=== PATIENT | male | born 1945 | race Caucasian/White ===

== ENCOUNTER 2021-08-30 17:06 | Inpatient (IN) | payer OTHER, SELFPAY ==
[2021-08-30] VITALS (33 sets, daily range): BP systolic 122–180; BP diastolic 60–145; PULSE 70–129; RESP 15–51; TEMP 36.7; O2SAT 92–98
--- NOTE | 2021-08-30 17:22 | DI.RAD.S_ITS ---
PROCEDURE: XR CHEST 1V INDICATIONS: shortness of breath TECHNIQUE: One view of the chest was acquired. COMPARISON: None. FINDINGS: Surgical changes and devices: None. Lungs and pleura: Small bilateral pleural effusions are seen. Streaky opacities are seen at the lung bases, right worse than left. No pneumothorax is seen. Mild generalized interstitial prominence can be seen. Mediastinum: Mediastinal contours appear normal. Heart size is mildly enlarged. Bones and chest wall: No suspicious bony lesions. Age-appropriate bony degenerative changes are seen. Overlying soft tissues appear unremarkable. IMPRESSION: Mild cardiomegaly with interstitial prominence and small bilateral pleural effusions. Please correlate with patient presentation, physical examination findings, and laboratory values for congestive heart failure. At the lung bases, poorly defined opacity can be seen. This is attributed to atelectasis, although differential diagnosis includes mild infiltrate, particularly on the right. Dictated by: Isiah Short M.D. on 08/30/2021 at 17:17 Approved by: Isiah Short M.D. on 08/30/2021 at 17:18
[2021-08-30 17:42] LABS: COVID19 -Nasal RAPID Negative (Negative)
[2021-08-30 18:01] LABS: Add Manual Diff / Slide Review NO; Basophils Absolute Auto 100 /uL (0-100); Basophils Percent Auto 0.9 % (0-2); Eosinophils Absolute Auto 100 /uL (0-450); Eosinophils Percent Auto 1.4 % (2-4); Hematocrit 49.6 % (41-53); Lymphocytes Absolute Auto 900 /uL (1100-4500); Mean Corpuscular HGB Conc 34.3 % (30-36); Mean Corpuscular Hemoglobin 32.4 PG (26-34); Mean Corpuscular Volume 94.4 fL (80-100); Monocytes Absolute Auto 600 /uL (0-900); Monocytes Percent Auto 7.2 % (3-14); Neutrophils Absolute Auto 6400 /uL (1500-7000); Neutrophils Percent Auto 79.5 % (50-75); Platelet Count 174 X10^3/uL (150-400); Red Blood Cell Count 5.25 X10^6/uL (4.5-5.9); Red Cell Distribution Width 15.3 % (11.6-14.8); White Blood Cell Count 8.1 X10^3/uL (4.5-11.0)
[2021-08-30] MEDS: dilTIAZem 5 MG/ML SDV 20 MG IV (18:01)
[2021-08-30 18:02] LABS: D Dimer 506 ng/mL (<230)
[2021-08-30 18:07] LABS: Alanine Aminotransferase 38 IU/L (<50); Albumin 4.8 g/dL (3.5-5.0); Albumin Globulin Ratio 1.2 (1.0-2.8); Alkaline Phosphatase 65 U/L (38-126); Aspartate Aminotransferase 41 IU/L (17-59); BUN Creatinine Ratio 28.6 (6-22); Bilirubin Total 1.5 mg/dL (0.2-1.3); Blood Urea Nitrogen 24 mg/dL (9-20); Calcium 9.2 mg/dL (8.4-10.2); Carbon Dioxide 31 mmol/L (22-32); Chloride 107 mmol/L (98-107); Creatine Kinase 51 U/L (55-170); Estimated Glomerular Filt Rate > 60 mL/min (>60); Globulin 3.9 g/dL (1.7-4.1); Glucose 137 mg/dL (80-110); HEMOLYSIS < 15 (0-50); Lactate (Lactic Acid) 2.1 mmol/L (0.7-2.1); Potassium 3.6 mmol/L (3.4-5.1); Sodium 150 mmol/L (137-145); Total Protein 8.7 g/dL (6.3-8.2)
--- NOTE | 2021-08-30 18:09 | ED_ITS ---
HPI - SOB/Dyspnea General Chief Complaint: Shortness of Breath/Dyspnea Stated Complaint: SOB Time Seen by Provider: 08/30/21 17:40 Source: patient Mode of arrival: Wheelchair History of Present Illness HPI Narrative: 76-year-old male smoker without known or chronic medical problems (he admittedly has not been to a doctor since 2002) presents with his daughter and a chief complaint of about 10 days of increasing shortness of breath and fatigue. He states that he had been in what he refers to as his normal state of health but since then minimal exertion makes him profoundly short of breath. He denies any chest pain or palpitations. He has had no fever or chills. He denies any nausea, vomiting or diarrhea. He does admit to some swelling in his lower extremities. He denies any history of the same. He presents today because his daughter flew in from out of state and found him to be ill and encouraged him to come be seen Related Data Home Medications Medication Instructions Recorded Confirmed No Known Home Medications 08/31/21 08/31/21 Allergies Allergy/AdvReac Type Severity Reaction Status Date / Time No Known Drug Allergies Allergy Verified 08/30/21 17:13 Review of Systems Review of Systems Narrative: GENERAL: Denies chills, fatigue, malaise, fever, sweats. HEENT: Denies sinus pain, ear pain, sore throat, difficulty swallowing, dizziness. RESPIRATORY: Denies dyspnea, cough, wheezing, hemoptysis, sputum. CARDIOVASCULAR: See HPI GASTROINTESTINAL: Denies nausea, vomiting, abdominal pain, diarrhea, constipation, melena. : Denies dysuria, frequency, incontinence, hematuria, urinary retention. MUSCULOSKELETAL: See HPI SKIN: Denies rash, skin lesions, or other NEUROLOGIC: Denies weakness, headache, numbness, change in speech, confusion, seizures, incoordination. PSYCHIATRIC: No concerning psychosocial issues. 12 point review of systems is negative except for those stated above Patient History Social History household members: none Smoking Status: Current every day smoker alcohol intake: current Smoking Status: Current every day smoker Substance Use Type: does not use Exam Narrative Exam Narrative: GENERAL: [76] year old patient appears stated age. Well-developed patient, in mild distress. Increased work of breathing, hypoxemia, rapid and irregular heart rate HEAD: Atraumatic. Normocephalic. EYES: Pupils equal round and reactive. Extraocular motions intact. No scleral icterus. No injection or drainage. ENT: Nose without bleeding, purulent drainage. Throat without erythema, tonsillar hypertrophy or exudate. Airway patent. NECK: Trachea midline. Non tender CARDIOVASCULAR: Tachycardic and rhythm without murmurs, gallops, or rubs. RESPIRATORY: Increased work of breathing, hypoxemia, crackles in both bases, prolonged expiratory phase, expiratory wheeze GASTROINTESTINAL: Abdomen soft, non-tender, nondistended. EXTREMITIES: 2+ pitting edema bilateral lower extremities BACK: Nontender without deformity or crepitance. No flank tenderness. NEURO: AOx3. SKIN: No rash or erythema of visible areas Initial Vital Signs Initial Vital Signs: Vital Signs Temperature 98.1 F 08/30/21 17:13 Pulse Rate 70 08/30/21 17:13 Respiratory Rate 22 08/30/21 17:13 Blood Pressure 122/87 08/30/21 17:13 Pulse Oximetry 92 08/30/21 17:13 Course Orders Ordered: Acetaminophen (Acetaminophen 325 Mg Tablet) 650 mg PO Q6HR PRN PRN Reason: pain Apixaban (Apixaban 5 Mg Tablet) 5 mg PO BID ELLIOTT Diltiazem HCl (Diltiazem 30 Mg Tablet) 30 mg PO Q6HR ELLIOTT Furosemide (Furosemide 40 Mg/4 Ml Vial) 40 mg IV Q12HR ELLIOTT Lorazepam (Lorazepam 2 Mg/Ml Inj) 0.5 mg IV Q6HR PRN PRN Reason: Anxiety Naloxone HCl (Naloxone 0.4 Mg/Ml Vial) 0.2 mg IV Q2MIN PRN PRN Reason: Opiate Reversal Ondansetron HCl (Ondansetron 4 Mg/2 Ml Inj) 4 mg IV Q8HR PRN PRN Reason: Nausea And Vomiting Sodium Chloride (Sodium Chloride 0.9% Flush) 10 ml IV PRN PRN PRN Reason: Flush Sodium Chloride (Sodium Chloride 0.9% Flush) 10 ml IV BID ELLIOTT Discontinued Medications Diltiazem HCl (Diltiazem 5 Mg/Ml Sdv) 20 mg IV NOW ONE Stop: 08/30/21 17:47 Last Admin: 08/30/21 18:01 Dose: 20 mg Documented by: ATAYLOR Diltiazem HCl (Diltiazem Sr 60 Mg) 60 mg PO NOW ONE Stop: 08/30/21 23:42 Last Admin: 08/31/21 01:04 Dose: Not Given Documented by: ZE Diltiazem HCl (Diltiazem 30 Mg Tablet) 30 mg PO NOW ONE Stop: 08/31/21 00:58 Last Admin: 08/31/21 01:09 Dose: 30 mg Documented by: ZE Enoxaparin Sodium (Enoxaparin 40 Mg/0.4 Ml Syringe) 40 mg SUBCUT NOW ONE Stop: 08/30/21 18:21 Last Admin: 08/30/21 19:12 Dose: 40 mg Documented by: ATAANGEL Furosemide (Furosemide 40 Mg/4 Ml Vial) 40 mg IV NOW ONE Stop: 08/30/21 18:21 Last Admin: 08/30/21 19:15 Dose: 40 mg Documented by: MALCOLM Diltiazem HCl 125 mg/ Dextrose 125 mls @ 5 mls/hr IV TITRATE ELLIOTT; Protocol Last Titration: 08/31/21 01:06 Dose: 0 mg/hr, 0 mls/hr Documented by: Titration: 08/30/21 22:10 Dose: 0 mg/hr, 0 mls/hr Documented by: Titration: 08/30/21 21:45 Dose: 5 mg/hr, 5 mls/hr Documented by: Titration: 08/30/21 19:20 Dose: 10 mg/hr, 10 mls/hr Documented by: Admin: 08/30/21 18:12 Dose: 5 mg/hr, 5 mls/hr Documented by: ATAYLOR Vital Signs Vital signs: Vital Signs - 8 hr 08/30/21 20:20 08/30/21 20:31 08/30/21 20:40 Pulse Rate 94 H 84 Respiratory Rate 22 15 Blood Pressure 153/81 H Pulse Oximetry 96 98 08/30/21 21:00 08/30/21 21:20 08/30/21 21:21 Pulse Rate 89 86 87 Respiratory Rate 19 18 20 Blood Pressure 135/75 129/78 Pulse Oximetry 97 97 97 08/30/21 21:40 08/30/21 22:00 08/30/21 22:20 Pulse Rate 82 84 82 Respiratory Rate 20 17 20 Blood Pressure 139/72 132/84 Pulse Oximetry 95 97 97 08/30/21 22:21 08/30/21 22:40 08/30/21 23:00 Pulse Rate 81 83 83 Respiratory Rate 18 16 15 Blood Pressure 129/66 138/70 164/74 H Pulse Oximetry 98 98 98 08/30/21 23:20 08/30/21 23:21 Pulse Rate 85 89 Respiratory Rate 16 21 Blood Pressure 133/70 Pulse Oximetry 98 96 MDM - SOB/Dyspnea Lab Data Result diagrams: 08/30/21 17:40 08/30/21 17:40 Labs: Lab Results 08/30/21 08/30/21 08/30/21 Range/Units 17:20 17:40 17:40 WBC 8.1 (4.5-11.0) X10^3/uL RBC 5.25 (4.5-5.9) X10^6/uL Hgb 17.0 (13.5-17.5) g/dL Hct 49.6 (41-53) % MCV 94.4 (80-100) fL MCH 32.4 (26-34) PG MCHC 34.3 (30-36) % RDW 15.3 H (11.6-14.8) % Plt Count 174 (150-400) X10^3/uL Neut % (Auto) 79.5 H (50-75) % Lymph % (Auto) 11.0 L (25-40) % [place] % (Auto) 7.2 (3-14) % Eos % (Auto) 1.4 L (2-4) % Baso % (Auto) 0.9 (0-2) % Neut # (Auto) 6400 (3046-8291) /uL Lymph # (Auto) 900 L (0212-4680) /uL [place] # (Auto) 600 (0-900) /uL Eos # (Auto) 100 (0-450) /uL Baso # (Auto) 100 (0-100) /uL D-Dimer (<230) ng/mL Sodium 150 H (137-145) mmol/L Potassium 3.6 (3.4-5.1) mmol/L Chloride 107 (98-107) mmol/L Carbon Dioxide 31 (22-32) mmol/L BUN 24 H (9-20) mg/dL Creatinine 0.84 (0.66-1.25) mg/dL Estimated GFR > 60 (>60) mL/min BUN/Creatinine Ratio 28.6 H (6-22) Glucose 137 H (80-110) mg/dL Lactate (0.7-2.1) mmol/L Calcium 9.2 (8.4-10.2) mg/dL Total Bilirubin 1.5 H (0.2-1.3) mg/dL AST 41 (17-59) IU/L ALT 38 (<50) IU/L Alkaline Phosphatase 65 (38-126) U/L Total Creatine Kinase (55-170) U/L CK-MB (CK-2) CK-MB (CK-2) Rel Index Troponin I (0.01-0.034) ng/mL NT-Pro-B Natriuret Pep (<450) pg/mL Total Protein 8.7 H (6.3-8.2) g/dL Albumin 4.8 (3.5-5.0) g/dL Globulin 3.9 (1.7-4.1) g/dL Albumin/Globulin Ratio 1.2 (1.0-2.8) SARS-CoV-2 (PCR) Negative (Negative) 08/30/21 08/30/21 08/30/21 Range/Units 17:40 17:40 17:40 WBC (4.5-11.0) X10^3/uL RBC (4.5-5.9) X10^6/uL Hgb (13.5-17.5) g/dL Hct (41-53) % MCV (80-100) fL MCH (26-34) PG MCHC (30-36) % RDW (11.6-14.8) % Plt Count (150-400) X10^3/uL Neut % (Auto) (50-75) % Lymph % (Auto) (25-40) % [place] % (Auto) (3-14) % Eos % (Auto) (2-4) % Baso % (Auto) (0-2) % Neut # (Auto) (2852-9835) /uL Lymph # (Auto) (4824-1597) /uL [place] # (Auto) (0-900) /uL Eos # (Auto) (0-450) /uL Baso # (Auto) (0-100) /uL D-Dimer 506 H (<230) ng/mL Sodium (137-145) mmol/L Potassium (3.4-5.1) mmol/L Chloride (98-107) mmol/L Carbon Dioxide (22-32) mmol/L BUN (9-20) mg/dL Creatinine (0.66-1.25) mg/dL Estimated GFR (>60) mL/min BUN/Creatinine Ratio (6-22) Glucose (80-110) mg/dL Lactate 2.1 (0.7-2.1) mmol/L Calcium (8.4-10.2) mg/dL Total Bilirubin (0.2-1.3) mg/dL AST (17-59) IU/L ALT (<50) IU/L Alkaline Phosphatase (38-126) U/L Total Creatine Kinase 51 L (55-170) U/L CK-MB (CK-2) TNP CK-MB (CK-2) Rel Index TNP Troponin I 0.052 H (0.01-0.034) ng/mL NT-Pro-B Natriuret Pep 5130 H (<450) pg/mL Total Protein (6.3-8.2) g/dL Albumin (3.5-5.0) g/dL Globulin (1.7-4.1) g/dL Albumin/Globulin Ratio (1.0-2.8) SARS-CoV-2 (PCR) (Negative) 08/30/21 Range/Units 20:00 WBC (4.5-11.0) X10^3/uL RBC (4.5-5.9) X10^6/uL Hgb (13.5-17.5) g/dL Hct (41-53) % MCV (80-100) fL MCH (26-34) PG MCHC (30-36) % RDW (11.6-14.8) % Plt Count (150-400) X10^3/uL Neut % (Auto) (50-75) % Lymph % (Auto) (25-40) % [place] % (Auto) (3-14) % Eos % (Auto) (2-4) % Baso % (Auto) (0-2) % Neut # (Auto) (6683-4353) /uL Lymph # (Auto) (0431-3173) /uL [place] # (Auto) (0-900) /uL Eos # (Auto) (0-450) /uL Baso # (Auto) (0-100) /uL D-Dimer (<230) ng/mL Sodium (137-145) mmol/L Potassium (3.4-5.1) mmol/L Chloride (98-107) mmol/L Carbon Dioxide (22-32) mmol/L BUN (9-20) mg/dL Creatinine (0.66-1.25) mg/dL Estimated GFR (>60) mL/min BUN/Creatinine Ratio (6-22) Glucose (80-110) mg/dL Lactate 2.8 H (0.7-2.1) mmol/L Calcium (8.4-10.2) mg/dL Total Bilirubin (0.2-1.3) mg/dL AST (17-59) IU/L ALT (<50) IU/L Alkaline Phosphatase (38-126) U/L Total Creatine Kinase (55-170) U/L CK-MB (CK-2) CK-MB (CK-2) Rel Index Troponin I (0.01-0.034) ng/mL NT-Pro-B Natriuret Pep (<450) pg/mL Total Protein (6.3-8.2) g/dL Albumin (3.5-5.0) g/dL Globulin (1.7-4.1) g/dL Albumin/Globulin Ratio (1.0-2.8) SARS-CoV-2 (PCR) (Negative) ECG Data Interpretation: Tachycardic and irregular, atrial fibrillation with rate at 1:15 a.m., LVH, QRS 124 MDM Narrative Medical decision making narrative: Patient is initially given Cardizem push followed by Cardizem drip which has slowed his rate largely into the upper 90s and low 100s. Oxygen by nasal cannula at 2 L initiated. Patient requires hospitalization for ongoing stabilization, treatment and evaluation of his condition. Discharge Plan Departure Patient Disposition: Admitted as Observation Clinical Impression: Atrial fibrillation with rapid ventricular response Admit Date/Time: 08/30/21 23:57 Admit Provider: Evgeny Snyder
[2021-08-30] MEDS: dilTIAZem 125 MG in DEXTROSE 5 % IN WATER 100 ML IV (18:12)
[2021-08-30 18:19] LABS: NT-proBNP (BNP-Adult 18+) 5130 pg/mL (<450); Troponin I 0.052 ng/mL (0.01-0.034)
--- NOTE | 2021-08-30 18:26 | DI.CT.S_ITS ---
PROCEDURE: CT ANGIO CHEST PE PROTOCOL INDICATIONS: new onset AFib, Acute CHF, hypoxemia, smoker, elevated Dimer TECHNIQUE: After the administration of intravenous contrast, 2 mm thick sections acquired from the pulmonary apices to the posterior costophrenic angles. 3-dimensional maximum intensity projection (MIP) coronal and sagittal reformats were then acquired through the thorax. For radiation dose reduction, the following was used: automated exposure control, adjustment of mA and/or kV according to patient size. COMPARISON: None. FINDINGS: Image quality: Excellent. Pulmonary arteries: Pulmonary arteries are normal in size, and demonstrate no intraluminal filling defects to suggest central pulmonary embolism. Lungs and pleura: Thickening of the interlobular septa with small left and small to moderate right pleural effusions, compatible with pulmonary edema. No pneumothorax. Central and peripheral airways are patent. Mediastinum: Heart size is normal, without pericardial effusion. Mediastinal lymph nodes, which may be reactive. Thoracic aorta is normal in caliber and enhancement. Esophagus is normal in caliber, without hiatal hernia. Bones and chest wall: Multifocal degenerative change. Ribs and thoracic spine appear intact throughout. Thyroid gland appears homogeneous. No axillary or supraclavicular adenopathy. Abdomen: 2 cm hypoattenuating lesion in the right hepatic lobe, which may reflect a cyst. Nodular contour of the liver, which may reflect cirrhosis. IMPRESSION: 1. No CT evidence of pulmonary embolism. 2. Interlobular septal thickening with bilateral pleural effusions as detailed above, suggesting pulmonary edema. 3. Nodular contour of the liver, suggesting cirrhosis. Dictated by: Pawan Chester M.D. on 08/30/2021 at 19:32 Approved by: Pawan Chester M.D. on 08/30/2021 at 19:37
[2021-08-30] MEDS: ENOXAPARIN 40 MG/0.4 ML SYRINGE SUBCUT (19:12)
[2021-08-30] MEDS: FUROSEMIDE 40 MG/4 ML VIAL IV (19:15)
[2021-08-30 19:46] LABS: Reflexed Lactate in 2 Hours Y
[2021-08-30 20:17] LABS: Lactate 2HR (Lactic Acid Rflx) 2.8 mmol/L (0.7-2.1)
[2021-08-31] VITALS (17 sets, daily range): BP systolic 114–140; BP diastolic 61–76; PULSE 64–99; RESP 17–20; TEMP 36.5–36.9; O2SAT 92–98; BMI 27.8
--- NOTE | 2021-08-31 00:45 | DI.ECHO.S_ITS ---
[facility] +---------+ [facility] +---------+ : : [address] : : : [place], [place] : : : : [id number] : : : : Phone: [phone]+ Echocardiogram Report + + :Name: MARY BRADY Study Date: 08/31/2021 Height: 70 in : :[facility] ReadingLocation: Weight: 194 lb : : Gender: Male BSA: 2.1 m2 : :: 1945 Age: 76 yrs BP: 114/68 mmHg: :Reason For Study: Congestive Heart Failure : :Ordering Physician: Rajeev : :Hospitalist Performed By: Nena Cordova : :Referring: TATYANA SARKAR : + + Interpretation Summary The patient was in atrial fibrillation with heart rates between 77-121 bpm during the exam. The left ventricle is mildly dilated. The ejection fraction is estimated to be 20-25%. There is severe global hypokinesis of the left ventricle. The right ventricle is normal size. Right ventricular systolic function is mildly reduced. There is moderate mitral regurgitation. The right ventricular systolic pressure is estimated to be at least 39 mmHg based on an estimated right atrial pressure of 15 mm Hg. There is a moderate right-sided pleural effusion. Procedure: A two-dimensional transthoracic echocardiogram with color flow and Doppler was performed. The study quality was technically adequate. There is no prior echocardiogram noted for this patient. The patient was in atrial fibrillation with heart rates between 77-121 bpm during the exam. Left Ventricle: The estimated left ventricular end diastolic volume is 162 ml. The left ventricle is mildly dilated. There is normal left ventricular wall thickness. There is no thrombus. The ejection fraction is estimated to be 20-25%. There is severe global hypokinesis of the left ventricle. Diastolic function could not be accurately assessed due to atrial fibrillation. Right Ventricle: The right ventricle is normal size. Right ventricular systolic function is mildly reduced. Atria: The left atrium is severely dilated. The right atrium is mildly dilated. The interatrial septum grossly appears intact with no obvious evidence for an atrial septal defect. Mitral Valve: The mitral valve leaflets appear mildly thickened, but open well. There is mild mitral annular calcification. There is moderate mitral regurgitation. Aortic Valve: The aortic valve is trileaflet. The aortic valve opens well. The aortic valve is mildly calcified. There is no aortic valve stenosis. No aortic regurgitation is present. Tricuspid Valve: The tricuspid valve leaflets are thin and pliable. There is trace tricuspid regurgitation. The right ventricular systolic pressure is estimated to be at least 39 mmHg based on an estimated right atrial pressure of 15 mm Hg. Pulmonic Valve: The pulmonic valve is not well seen, but is grossly normal. Great Vessels: The aortic root is normal size. The ascending aorta is normal in size. The IVC is dilated (diameter is greater than 2.1 cm) and it collapses less than 50% with a sniff. This suggests a high right atrial pressure of 15 mm Hg. Pericardium/ Pleura There is a trivial pericardial effusion noted. There are no echocardiographic indications of cardiac tamponade. There is a moderate right-sided pleural effusion. MMode/2D Measurements & Calculations LVIDd: 5.6 cm LVOT diam: 2.4 cm LVIDs: 4.7 cm Ao root diam: 3.6 cm FS: 16.1 % asc Aorta Diam: 3.4 cm EPSS: 1.1 cm IVSd: 0.93 cm LVPWd: 1.1 cm LV shankar. diameter/BSA (cm/m^2): 2.7 LV sys. diameter/BSA (cm/m^2): 2.3 LA A2 area: 28.4 cm2 RA long axis: 5.8 cm LA A4 area: 28.9 cm2 RA area: 22.8 cm2 LA length (vol): 6.0 cm RA vol: 76.4 ml LA vol: 115.6 ml RA : 37.1 ml/m2 LA vol index: 56.1 ml/m2 IVC diam: 2.2 cm RVD1 (basal): 3.8 cm TAPSE: 1.7 cm Doppler Measurements & Calculations Ao V2 max: 151.7 cm/sec LVOT Max Ko: 59.0 cm/sec Ao V2 mean: 107.9 cm/sec LV V1 max P.4 mmHg Ao max P.3 mmHg LV V1 VTI: 7.9 cm Ao mean P.2 mmHg MICHELLE(I,D): 1.6 cm2 Ao V2 VTI: 21.7 cm MICHELLE(V,D): 1.7 cm2 sev ratio: 0.37 MICHELLE indexed to BSA (cm^2/m^2): 0.80 Med Peak E' Ko: 3.9 cm/sec TR max ko: 244.7 cm/sec Lat Peak E' Ko: 6.6 cm/sec TR max P.0 mmHg MVA(VTI): 1.7 cm2 PA V2 max: 77.2 cm/sec MR ERO: 0.23 cm2 PA V2 mean: 47.7 cm/sec PA mean P.0 mmHg PA pr(Accel): 39.2 mmHg MV V2 mean: 29.2 cm/sec MR PISA: 3.0 cm2 MV mean P.57 mmHg MR flow rate: 110.1 cm3/sec MV V2 VTI: 20.4 cm MR PISA radius: 0.69 cm SV(LVOT): 35.6 ml Reading Physician:03:50 PM
[2021-08-31 01:06] LABS: Troponin I 0.055 ng/mL (0.01-0.034)
[2021-08-31] MEDS: dilTIAZem 30 MG TABLET PO ×4 (01:09→18:29)
[2021-08-31 05:41] LABS: Add Manual Diff / Slide Review NO; Basophils Absolute Auto 100 /uL (0-100); Eosinophils Absolute Auto 100 /uL (0-450); Eosinophils Percent Auto 1.7 % (2-4); Hematocrit 44.1 % (41-53); Hemoglobin 14.7 g/dL (13.5-17.5); Lymphocytes Absolute Auto 900 /uL (1100-4500); Lymphocytes Percent Auto 12.5 % (25-40); Mean Corpuscular HGB Conc 33.4 % (30-36); Mean Corpuscular Hemoglobin 31.6 PG (26-34); Mean Corpuscular Volume 94.6 fL (80-100); Monocytes Absolute Auto 700 /uL (0-900); Monocytes Percent Auto 9.3 % (3-14); Neutrophils Absolute Auto 5300 /uL (1500-7000); Neutrophils Percent Auto 75.5 % (50-75); Platelet Count 164 X10^3/uL (150-400); Red Blood Cell Count 4.66 X10^6/uL (4.5-5.9); Red Cell Distribution Width 15.1 % (11.6-14.8)
--- NOTE | 2021-08-31 05:44 | PM.HP.1 ---
History of Present Illness History of Present Illness Date Patient Seen: 08/31/21 Time Patient Seen: 00:30 Chief complaint: SOB Narrative: Mr. Julio is a 76M active smoker, with no PMH, seen no physician for years who presents with shortness of breath. He began having shortness of breath approximately two weeks ago. He has a mild, nonproductive cough. He has no fevers/chills. He notices ankle swelling. He has dyspnea on exertion. He has no chest pain, palpitations. No orthopnea. In the ED workup was done, and vitals were notable for tachypnea. O2 sat in the low 90s, he was placed on oxygen. He was tachycardic in afib with RVR. Labs notable for WBC 8.1, hgb 17, Na 150, creatinaine 0.84. D-dimer 506. Lactate 2.1->2.8->2.0. Trop 0.052->0.055, BNP 5130. CT showed bilateral pleural effusions and pulmonary edema. He was ordered for dilt IV, then started on drip. His heart rate improved and drip was stopped and he was transitioned to oral medications. He was ordered for IV lasix. PMH: none Meds: none Family history: Father with CAD Social history: 10-20 cigs/daily, no EtOH Patient History Family & Social History Social History: household members none Prior Living Arrangements House Safety & Behavioral: Feels Safe in Current Yes Environment Been Physically Hurt or No Threatened By a Person Suicidal Ideation Description None Suicide Plan Description No Plan Tobacco & Substance use: Tobacco type cigarettes Smoking Status Current every day smoker alcohol intake current alcohol intake frequency other Substance Use Type does not use Meds Home Medications and Allergies Home Medications Medication Instructions Recorded Confirmed Type No Known Home Medications 08/31/21 08/31/21 History Allergies Allergy/AdvReac Type Severity Reaction Status Date / Time No Known Drug Allergies Allergy Verified 08/30/21 17:13 Review of Systems Review of Systems Narrative: 14 systems reviewed and negative aside from what is noted in HPI Exam Vital Signs (past 8 hours): - 08/30/21 22:00 08/30/21 22:20 08/30/21 22:21 Temperature Pulse Rate 84 82 81 Respiratory Rate 17 20 18 Blood Pressure 132/84 129/66 Pulse Oximetry 97 97 98 08/30/21 22:40 08/30/21 23:00 08/30/21 23:20 Temperature Pulse Rate 83 83 85 Respiratory Rate 16 15 16 Blood Pressure 138/70 164/74 H Pulse Oximetry 98 98 98 08/30/21 23:21 08/31/21 00:21 08/31/21 00:45 Temperature 98.1 F Pulse Rate 89 92 H Respiratory Rate 21 17 Blood Pressure 133/70 121/69 Pulse Oximetry 96 96 98 08/31/21 01:09 08/31/21 04:45 Temperature 98.0 F Pulse Rate 92 H 89 Respiratory Rate 17 Blood Pressure 121/69 132/63 Pulse Oximetry 93 Oxygen Delivery Method Nasal Cannula Oxygen Flow Rate 1 Narrative Exam Narrative: GEN: no acute distress HEENT: moist mucous membranes, PERRL NECK: trachea midline, no JVD CV: irregular, no murmurs PULM: crackles bilaterally ABD: soft, nontender, nondistended, no organomegaly EXT: warm and well perfused, 1+ pitting edema at ankles NEURO: awake, alert, oriented, no focal deficits Objective Labs Result Diagrams: 08/31/21 05:11 08/30/21 17:40 Labs: Laboratory Results - last 24 hr 08/30/21 08/30/21 08/30/21 17:20 17:40 17:40 WBC 8.1 RBC 5.25 Hgb 17.0 Hct 49.6 MCV 94.4 MCH 32.4 MCHC 34.3 RDW 15.3 H Plt Count 174 Neut % (Auto) 79.5 H Lymph % (Auto) 11.0 L [place] % (Auto) 7.2 Eos % (Auto) 1.4 L Baso % (Auto) 0.9 Neut # (Auto) 6400 Lymph # (Auto) 900 L [place] # (Auto) 600 Eos # (Auto) 100 Baso # (Auto) 100 D-Dimer Sodium 150 H Potassium 3.6 Chloride 107 Carbon Dioxide 31 BUN 24 H Creatinine 0.84 Estimated GFR > 60 BUN/Creatinine Ratio 28.6 H Glucose 137 H Lactate Calcium 9.2 Total Bilirubin 1.5 H AST 41 ALT 38 Alkaline Phosphatase 65 Total Creatine Kinase CK-MB (CK-2) CK-MB (CK-2) Rel Index Troponin I NT-Pro-B Natriuret Pep Total Protein 8.7 H Albumin 4.8 Globulin 3.9 Albumin/Globulin Ratio 1.2 SARS-CoV-2 (PCR) Negative 08/30/21 08/30/21 08/30/21 17:40 17:40 17:40 WBC RBC Hgb Hct MCV MCH MCHC RDW Plt Count Neut % (Auto) Lymph % (Auto) [place] % (Auto) Eos % (Auto) Baso % (Auto) Neut # (Auto) Lymph # (Auto) [place] # (Auto) Eos # (Auto) Baso # (Auto) D-Dimer 506 H Sodium Potassium Chloride Carbon Dioxide BUN Creatinine Estimated GFR BUN/Creatinine Ratio Glucose Lactate 2.1 Calcium Total Bilirubin AST ALT Alkaline Phosphatase Total Creatine Kinase 51 L CK-MB (CK-2) TNP CK-MB (CK-2) Rel Index TNP Troponin I 0.052 H NT-Pro-B Natriuret Pep 5130 H Total Protein Albumin Globulin Albumin/Globulin Ratio SARS-CoV-2 (PCR) 08/30/21 08/31/21 08/31/21 20:00 00:35 00:35 WBC RBC Hgb Hct MCV MCH MCHC RDW Plt Count Neut % (Auto) Lymph % (Auto) [place] % (Auto) Eos % (Auto) Baso % (Auto) Neut # (Auto) Lymph # (Auto) [place] # (Auto) Eos # (Auto) Baso # (Auto) D-Dimer Sodium Potassium Chloride Carbon Dioxide BUN Creatinine Estimated GFR BUN/Creatinine Ratio Glucose Lactate 2.8 H 2.0 Calcium Total Bilirubin AST ALT Alkaline Phosphatase Total Creatine Kinase CK-MB (CK-2) CK-MB (CK-2) Rel Index Troponin I 0.055 H NT-Pro-B Natriuret Pep Total Protein Albumin Globulin Albumin/Globulin Ratio SARS-CoV-2 (PCR) 08/31/21 05:11 WBC 7.0 RBC 4.66 Hgb 14.7 Hct 44.1 MCV 94.6 MCH 31.6 MCHC 33.4 RDW 15.1 H Plt Count 164 Neut % (Auto) 75.5 H Lymph % (Auto) 12.5 L [place] % (Auto) 9.3 Eos % (Auto) 1.7 L Baso % (Auto) 1.0 Neut # (Auto) 5300 Lymph # (Auto) 900 L [place] # (Auto) 700 Eos # (Auto) 100 Baso # (Auto) 100 D-Dimer Sodium Potassium Chloride Carbon Dioxide BUN Creatinine Estimated GFR BUN/Creatinine Ratio Glucose Lactate Calcium Total Bilirubin AST ALT Alkaline Phosphatase Total Creatine Kinase CK-MB (CK-2) CK-MB (CK-2) Rel Index Troponin I NT-Pro-B Natriuret Pep Total Protein Albumin Globulin Albumin/Globulin Ratio SARS-CoV-2 (PCR) Assessment & Plan Assessment & Plan narrative: Mr. Julio is a 76M with known previous known PMH who presents with shortness of breath. 1. Acute congestive heart failure with acute respiratory distress -noted to have acute bilateral pleural effusions, pulmonary edema, lower extremity edema and elevated BNP -consistent with new diagnosis of CHF -has improved with IV lasix -continue IV lasix 40mg BID, goal -2L daily -ECHO ordered to eval EF -ordered low salt diet, fluid restriction 2. New onset afib with RVR -heart rate improved with dilt gtt -gtt stopped and switched to dilt 30mg q6 PO -started apixaban -ECHO as above 3. Cardiac demand ischemia -patient with no chest pain -trop slightly elevated and rising from 0.054 to 0.057 -suspect demand from afib with RVR and CHF -continue to trend trops -start statin -consider aspirin, but will hold off for now as ordered for apixaban CODE: Full Proxy: Rose Mary Julio, daughter I have used all available resources to reconcile the patient's home medications. Time Spent With Patient Critical Care time: I spent a total of [] minutes of critical care time on this patient's care today; this time is exclusive of procedural time. Quality MIPS - Admit I confirm the patient?s Advance Care Plan is present, Code status is documented, Surrogate decision maker is in patient?s record [If Yes, STOP here]: Yes
[2021-08-31 05:47] LABS: BUN Creatinine Ratio 24.4 (6-22); Blood Urea Nitrogen 21 mg/dL (9-20); Calcium 8.5 mg/dL (8.4-10.2); Carbon Dioxide 35 mmol/L (22-32); Chloride 105 mmol/L (98-107); Estimated Glomerular Filt Rate > 60 mL/min (>60); Glucose 112 mg/dL (80-110); HEMOLYSIS < 15 (0-50); Magnesium 1.9 mg/dL (1.6-2.3); Potassium 3.6 mmol/L (3.4-5.1); Sodium 146 mmol/L (137-145)
--- NOTE | 2021-08-31 06:05 | PC.ADMIT ---
1809 Patient admitted to room 221 per stretcher from ER but transferred into bed with 1 assist. Is alert and oriented. Reports he is only able to see light and colors with left eye. Breath sounds diminished with scattered crackles. Has a loose, non-productive cough which he states he has had for 5-6 years; smoker's cough. Initially on RA with sat of 98% but later this morning was complaining of feeling more SOB and sat noted to be 90-91% so started on oxygen at 1L/min per NC with sat increasing to 93%. HR irregular; telemetry reading has been afib CVR although did have a brief episode where HR noted to be in 120 range for approximately 3 seconds. Denied nausea but states he has not been able to eat well for past 10 days. BT present and abdomen is soft; non tender. Voiding per urinal; reports he had episode of incontinence in ER following Lasix administration but is normally continent. Is able to move himself in bed. Gait not assessed but patient reports he does not use an assistive device at home. Denied pain. Fall risk score is moderate but patient reports having fallen in past 3 months so bed alarm activated and patient verbalized understanding to call for staff assist when getting out of bed. Oriented to call light and bed controls. On fluid restriction. Admission Note: The patient,Moise uJlio,76 y/o, was given written information regarding hospital policies, unit procedures and contact persons. Patient's smoking status: Current every day smoker. Vital Signs - 8 hr 08/30/21 22:20 08/30/21 22:21 08/30/21 22:40 Temperature Pulse Rate 82 81 83 Respiratory Rate 20 18 16 Blood Pressure 129/66 138/70 Pulse Oximetry 97 98 98 08/30/21 23:00 08/30/21 23:20 08/30/21 23:21 Temperature Pulse Rate 83 85 89 Respiratory Rate 15 16 21 Blood Pressure 164/74 H 133/70 Pulse Oximetry 98 98 96 08/31/21 00:21 08/31/21 00:45 08/31/21 01:09 Temperature 98.1 F Pulse Rate 92 H 92 H Respiratory Rate 17 Blood Pressure 121/69 121/69 Pulse Oximetry 96 98 08/31/21 04:45 Temperature 98.0 F Pulse Rate 89 Respiratory Rate 17 Blood Pressure 132/63 Pulse Oximetry 93
[2021-08-31] MEDS: FUROSEMIDE 40 MG/4 ML VIAL IV ×2 (06:29→18:45)
[2021-08-31] MEDS: SODIUM CHLORIDE 0.9% 250 ML 21 ML IV (06:30)
[2021-08-31] MEDS: SODIUM CHLORIDE 0.9% FLUSH 10 ML IV ×3 (06:30→21:43)
[2021-08-31] MEDS: APIXABAN 5 MG TABLET PO ×2 (09:28→21:43)
[2021-08-31 11:23] LABS: Troponin I 0.049 ng/mL (0.01-0.034)
--- NOTE | 2021-08-31 13:37 | CM.DANOTE ---
Patient is a 76 yo male who was admitted on 08/30/21 for SOB. Pt has [employer] AD[employer] for insurance and his PCP is not listed. EMR was reviewed. Per MD, pt is a daily smoker and admitted for AFIB and tachy and needing oxygen, dilt drip, with bilateral PEs and new CHF exacerbation. Echo ordered and pending. SW met bedside with pt and explained role and he confirms that he lives in [place] alone and is independent with ADL's at baseline, drives, does not use DME, does his own shopping and chores and denies any home oxygen at baseline. Pt states he has no other family local as his parents late ' and early 1999'. 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 Pt states when he fell a month ago and was weak, Dtr's boss/job is very flexible and understanding and Dtr was able to come up for a week to assist pt and this time when pt was admitted to the hospital again they approved her to fly up for a week to assist again. Dtr Rose Mary plans to remain here visiting for at least another few days. Pt denies any hx of HH or SNF and states he hasn't seen a PCP in years although he has an established PCP here at [facility] but pt cannot remember PCP name as PCP is basically just for insurance purposes as I haven't seen a doctor in years. POC unclear at this time and pt could likely benefit from PT eval and recommendations once Echo completed towards determining d/c planning needs. Plan: SW to follow closely to confirm safe plan of home with Dtr assist for a couple days and r/o HH and any further discharge planning needs. MAYANK Mcnamara Discharge Planning/Care Management CM Discharge Assessment Start: 08/31/21 13:35 Freq: Status: Active Protocol: Document 08/31/21 13:35 BF (Rec: 08/31/21 13:37 BF [id number]) Discharge Planning Assessment Assigned Fisher MAYANK Aguilar DPJUAN RAMON/Assigned Designee Name Citlaly Bazzi, lives in [place] Contact Information [phone] Advance Directives? No Advance Directives on File No History Provided By Patient,Medical Record Has Patient been admitted in last 30 No days? Prior Living Arrangements House Household Members none Type of transporation used prior to Drives own vehicle admit Independent with ADL's Yes Is patient alert and oriented? Yes Caregiver for Another No Patient/Family Preference Home with Home Health Comment r/o HH pending progress Barriers to Discharge No Discharge Plan Home Transportation Arrangement Dtr is currently visiting from [place] and can provide transport at d/c Referrals Initiated None needed Additional Comment Pending progress, r/o HH Whiteboard Updated in Patient Room with Yes name and ext. # of Fisher Review Status In Process Please Provide Date Initial DC 08/31/21 Assessment Was Performed Next Review Type Continued Stay Review
[2021-08-31] MEDS: ATORVASTATIN 20 MG TABLET 40 MG PO (21:43)
[2021-09-01] VITALS (20 sets, daily range): BP systolic 105–154; BP diastolic 65–77; PULSE 55–91; RESP 14–20; TEMP 35.7–37; O2SAT 91–99
[2021-09-01] MEDS: dilTIAZem 30 MG TABLET PO ×3 (01:48→12:19)
[2021-09-01] MEDS: FUROSEMIDE 40 MG/4 ML VIAL IV (06:55)
[2021-09-01] MEDS: SODIUM CHLORIDE 0.9% FLUSH 10 ML IV ×2 (08:14→21:14)
[2021-09-01] MEDS: APIXABAN 5 MG TABLET PO ×2 (08:14→21:13)
--- NOTE | 2021-09-01 16:49 | P.PN_ITS ---
Subjective Subjective Date Patient Seen: 09/01/21 Interval history: The patient is a 76-year-old male admitted to the hospital for acute decompensated congestive heart failure. He has a greater than 50 pack-year history of smoking, he likely has underlying COPD but has not previously been treated for. Patient continues to have a nonproductive cough. His shortness of breath has improved. He is able to ambulate without desaturation. Exam Vital Signs (past 8 hours): - 09/01/21 11:00 09/01/21 12:00 09/01/21 12:19 Temperature 96.2 F L Pulse Rate 70 90 Respiratory Rate 16 Blood Pressure 122/72 122/72 Pulse Oximetry 99 99 09/01/21 13:30 Temperature Pulse Rate Respiratory Rate Blood Pressure Pulse Oximetry 91 Oxygen Delivery Method Room Air Oxygen Flow Rate 1 Narrative Exam Narrative: Pleasant elderly male lying in bed, occasionally coughing Resp Other: Lungs decreased breath sounds but clear to auscultation Cardio Other: Cardiac exam: Irregularly irregular normal S1-S2 GI Other: Abdomen: Soft nontender nondistended Extrem Other: Extremities: No edema Objective Labs Result Diagrams: 08/31/21 05:11 08/31/21 05:11 [facility] Social History household members: none Smoking Status: Current every day smoker alcohol intake: current Assessment & Plan Assessment & Plan narrative: Acute congestive heart failure with acute respiratory distress -noted to have acute bilateral pleural effusions, pulmonary edema, lower extremity edema and elevated BNP -consistent with new diagnosis of CHF -has improved with IV lasix -continue IV lasix 40mg BID, goal -2L daily -ECHO ordered to eval EF -echo reveals ejection fraction of 20-25%, severe global hypokinesis, the right ventricle is normal in size, right ventricular systolic function is reduced, moderate mitral regurgitation, moderate right-sided pleural effusion -given ejection fraction of 20-25%, will start low-dose JORGE-inhibitor, low-dose beta-jennifer, 2. New onset afib with RVR -heart rate improved with dilt gtt -gtt stopped and switched to dilt 30mg q6 PO -started apixaban -given low blood pressure, and low ejection fraction, will discontinue diltiazem, and start Coreg 3. Cardiac demand ischemia -patient with no chest pain -trop slightly elevated and rising from 0.054 to 0.057 -suspect demand from afib with RVR and CHF -continue to trend trops -start statin -consider aspirin, but will hold off for now as ordered for apixaban 4. Probable COPD -will start inhalers Anticipate discharge home tomorrow Time Spent With Patient Critical Care time: I spent a total of [] minutes of critical care time on this patient's care today; this time is exclusive of procedural time.
[2021-09-01] MEDS: carvediloL 3.125 MG TABLET 6.25 MG PO (21:13)
[2021-09-01] MEDS: ATORVASTATIN 20 MG TABLET 40 MG PO (21:13)
[2021-09-01] MEDS: BUDESONIDE 0.5 MG/2 ML NEB INH (21:50)
[2021-09-02] VITALS (12 sets, daily range): BP systolic 97–127; BP diastolic 58–86; PULSE 54–82; RESP 16–18; TEMP 36.2–36.4; O2SAT 92–96
[2021-09-02 05:49] LABS: BUN Creatinine Ratio 23.8 (6-22); Blood Urea Nitrogen 19 mg/dL (9-20); Calcium 8.6 mg/dL (8.4-10.2); Chloride 97 mmol/L (98-107); Estimated Glomerular Filt Rate > 60 mL/min (>60); Glucose 114 mg/dL (80-110); HEMOLYSIS < 15 (0-50); Potassium 3.5 mmol/L (3.4-5.1); Sodium 141 mmol/L (137-145)
[2021-09-02 05:53] LABS: NT-proBNP (BNP-Adult 18+) 1620 pg/mL (<450)
[2021-09-02 05:56] LABS: Carbon Dioxide 39 mmol/L (22-32)
[2021-09-02] MEDS: BUDESONIDE 0.5 MG/2 ML NEB INH (07:42)
[2021-09-02] MEDS: carvediloL 3.125 MG TABLET 6.25 MG PO (08:42)
[2021-09-02] MEDS: lisinopriL 10 MG TABLET PO (08:43)
[2021-09-02] MEDS: APIXABAN 5 MG TABLET PO (08:43)
[2021-09-02] MEDS: SODIUM CHLORIDE 0.9% FLUSH 10 ML IV (08:44)
--- NOTE | 2021-09-02 09:17 | PM.DS.1 ---
History of Present Illness History of Present Illness Date Patient Seen: 09/02/21 Time Patient Seen: 09:17 Chief complaint: SOB Narrative: Mr. Julio is a 76M active smoker, with no PMH, seen no physician for years who presents with shortness of breath. He began having shortness of breath approximately two weeks ago. He has a mild, nonproductive cough. He has no fevers/chills. He notices ankle swelling. He has dyspnea on exertion. He has no chest pain, palpitations. No orthopnea. In the ED workup was done, and vitals were notable for tachypnea. O2 sat in the low 90s, he was placed on oxygen. He was tachycardic in afib with RVR. Labs notable for WBC 8.1, hgb 17, Na 150, creatinaine 0.84. D-dimer 506. Lactate 2.1->2.8->2.0. Trop 0.052->0.055, BNP 5130. CT showed bilateral pleural effusions and pulmonary edema. He was ordered for dilt IV, then started on drip. His heart rate improved and drip was stopped and he was transitioned to oral medications. He was ordered for IV lasix. Discharge Providers Provider Date of admission: 08/30/21 23:57 Discharge Date: 09/02/21 Consults: 08/31/21 00:34 Consult to Dietitian, Adult Routine Comment: Reason For Exam: MNA score = 10 Discharge provider: Cate Goodwin MD Summary Hospital Course Discharge Diagnosis: 1. Acute Hypoxic REspiratory Failure secondary 2. Acute Systolic heart failure, Ejection fraction 20-25% 3. Probable COPD 4. Atrial Fibrillation, with controlled ventricular response 5. Elevated troponin likely demand ischemia Hospital Course: Patient was admitted to the hospital with Acute decompensated Hypoxic Respiratory failure secondary to Acute Systolic dysfunction. He was diuresed and had over 3 liters of fluid removed. Echo cardiogram confirmed and ejection fraction of 20-25%. The patient was also found to be in Afib with RVR. He was started on diltiazem and apixaban for anticoagulation and rate control. His rate was well controlled. Once the echo confirmed his ejection fraction of 20%, the diltiazem was discontinued, the patient was started on lisinopril and coreg for both Systolic heart failure and Coreg for rate control. He continues to have a non productive cough, he is no longer hypoxic. His heart rate is controlled. Patient is deemed appropriate for discharge home. Status at Discharge Cognitive/behavioral status at discharge: oriented Functional status at discharge: independent ambulation Overall status at discharge: patient is progressing back to baseline Exam Vital Signs (past 8 hours): - 09/02/21 01:55 09/02/21 03:57 09/02/21 04:00 Temperature 97.2 F L Pulse Rate 76 81 Respiratory Rate Blood Pressure 127/83 116/62 Pulse Oximetry 94 92 92 09/02/21 05:15 09/02/21 06:36 09/02/21 07:43 Temperature 97.6 F Pulse Rate 78 54 L Respiratory Rate 18 18 Blood Pressure 110/86 Pulse Oximetry 92 96 93 09/02/21 08:42 09/02/21 08:43 Temperature Pulse Rate 81 81 Respiratory Rate Blood Pressure 110/86 110/86 Pulse Oximetry Oxygen Delivery Method Room Air Oxygen Flow Rate 0 Narrative Exam Narrative: pleasant male lying in bed in no acute distress Resp Other: Lungs: coarse breath sounds with occassional scattered rhonchi Cardio Other: RRR nl Sl S2 GI Other: Abd: soft/ non tender/ non distended Extrem Other: No edema Objective Labs Result Diagrams: 08/31/21 05:11 09/02/21 04:38 Labs: Laboratory Results - last 24 hr 09/02/21 04:38 Sodium 141 Potassium 3.5 Chloride 97 L Carbon Dioxide 39 H BUN 19 Creatinine 0.80 Estimated GFR > 60 BUN/Creatinine Ratio 23.8 H Glucose 114 H Calcium 8.6 NT-Pro-B Natriuret Pep 1620 H PFSH Social History household members: none Smoking Status: Current every day smoker alcohol intake: current Discharge Assessment & Plan Assessment and Plan Assessment: 1.Acute Hypoxic REspiratory Failure secondary 2. Acute Systolic heart failure, Ejection fraction 20-25% 3. Probable COPD 4. Atrial Fibrillation, with controlled ventricular response Plan of Treatment: Discharge home Outpatient Pulmonary Function Testing Medications as prescribed. Discharge Plan Discharge Plan Patient Disposition: Home Discharge orders & Medications Prescriptions: New Eliquis 5 mg Tablet 5 mg PO BID Qty: 30 0RF lisinopril 10 mg Tablet 10 mg PO DAILY Qty: 30 0RF atorvastatin [Lipitor] 20 mg Tablet 40 mg PO BEDTIME Qty: 30 0RF carvedilol [Coreg] 3.125 mg Tablet 6.25 mg PO BID Qty: 30 0RF fluticasone propion-salmeterol [Advair Diskus] 100-50 mcg/dose blister with device 1 inh inhalation BID Qty: 60 0RF No Action No Known Home Medications 0RF
--- NOTE | 2021-09-02 10:56 | PC.NURSE ---
Pt awakened this a.m. slightly lethargice A&Ox3. Ambulates to BR, steady gait some weakness noted. VSS, afebrile on RA and afib on telemetry. Productive cough noted, lung sounds cleear after nebulizing treatment with RT. MD at bedside evaluating paitnet and clears him for discharge home today with new medications. He reports some stomach irritation but declined any prn anti nausea medication. Patient verbalizes understanding of discharge medications as well as his daughter who arrives to escort patient home. She assists him to make primary care provider appointment this a.m. He is escorted by wheel chair by this nurse to private vehicle with his daughter for discharge home with his prescriptions for new medications at approximately 1030.
--- NOTE | 2021-09-02 13:42 | CM.DPC ---
DCP Discharge Home Per MD, pt medically stable to d/c home today with new Rx and no identified barriers to discharge. Per RN, pt ambulated independently with some weakness but Dtr arrived bedside for discharge instructions and to provide transport and assist with PCP follow up. Plan: Patient discharged home this morning via Dtr POV who will be staying a few days longer before flying back to [place] for assist and no further SW needs at this time. MAYANK Mcnamara
== END 2021-09-02 10:30 | disposition home or self-care (01) | DRG 308 ==
LOC: ED 22:22 → AC 08-31 04:17
PROVIDERS: Emergency Medicine; Internal Medicine; Admitting Provider Internal Medicine; Emergency Provider Emergency Medicine; Referring Provider Emergency Medicine; Visit Provider Internal Medicine
DX: I48.91 Unspecified atrial fibrillation (principal); I50.21 Acute systolic (congestive) heart failure; I24.8 Other forms of acute ischemic heart disease; R06.03 Acute respiratory distress; J44.9 Chronic obstructive pulmonary disease, unspecified; F17.210 Nicotine dependence, cigarettes, uncomplicated; Z20.822 Contact with and (suspected) exposure to COVID-19
CPT/HCPCS: 36415; 71045; 71046; 71275; 80048; 80053; 82550; 83605; 83735; 83880; 84484; 85025; 85379; 87635; 93005; 93306; 94618; 94640; 94760; 96365; 96366; 96372; 96375; 96376; 99285; C9803; J1650; J1940; Q9967

== ENCOUNTER → 2022-01-22 15:53 | Outpatient (CLI) | payer OTHER, SELFPAY ==
[2021-08-31 00:24] VITALS: BMI 27.8
--- NOTE | 2022-01-22 | DI.ECHO.S_ITS ---
[facility]---------+ [facility] +---------+ : : [address] : [address] [address] : : : : [phone] : : : : Phone: [phone]---------+ Echocardiogram Report + + :Name: MARY BRADY Study Date: 01/22/2022 Height: 70 in : :[facility] ReadingLocation: Weight: 190 lb : : Gender: Male BSA: 2.0 m2 : :: 1945 Age: 76 yrs BP: 125/78 mmHg: :Reason For Study: SYSTOLIC HEART FAILURE : :Ordering Physician: KATIUSKA, : :ANDER Briggs Performed By: Anh Santana : :Referring: ANDER HARP : + + Interpretation Summary The patient was in atrial fibrillation with controlled ventricular rate during the exam. The left ventricle is mildly dilated. The ejection fraction is estimated to be 20-25%. There has been no significant change in LVEF since the previous exam. There is severe global hypokinesis of the left ventricle. The right ventricle is normal in size and function. There is moderate mitral regurgitation. Compared to the prior echo study, there has been no change in the severity of mitral regurgitation. The IVC is of normal diameter and collapses greater than 50% with a sniff. This suggests a low right atrial pressure of 3 mm Hg. Previously right atrial pressure was about 15 mmHg. Procedure: A two-dimensional transthoracic echocardiogram with color flow and Doppler was performed. The study quality was technically adequate. Comparison is made with the echocardiogram of 08/31/2021. The patient was in atrial fibrillation with controlled ventricular rate during the exam. Left Ventricle: Left ventricular wall thickness is mildly increased. The left ventricle is mildly dilated. There is no thrombus. The ejection fraction is estimated to be 20-25%. There has been no significant change since the previous exam. There is severe global hypokinesis of the left ventricle. Compared to the prior exam, the left ventricular wall motion has not changed. Diastolic function could not be accurately assessed due to atrial fibrillation. E/E' med: 16.0. Right Ventricle: The right ventricle is normal in size and function. Atria: The left atrium is severely dilated. There has been no significant change since the previous study. Right atrial size is normal. There is no Doppler evidence for an interatrial shunt. Mitral Valve: The mitral valve leaflets appear mildly thickened, but open well. There is mild mitral annular calcification. There is moderate mitral regurgitation. The mitral regurgitant jet is eccentrically directed. Compared to the prior echo study, there has been no change in the severity of mitral regurgitation. Aortic Valve: The aortic valve is trileaflet. The aortic valve opens well. The aortic valve is mildly calcified. There is no aortic valve stenosis. No aortic regurgitation is present. Tricuspid Valve: The tricuspid valve leaflets are thin and pliable. There is trace tricuspid regurgitation. Pulmonary artery pressures cannot be estimated because of the lack of a measurable TR jet velocity. Pulmonic Valve: The pulmonic valve is not well seen, but is grossly normal. There is trace pulmonic regurgitation. Great Vessels: The aortic root is normal size. The dimensions of the ascending aorta are normal. The IVC is of normal diameter and collapses greater than 50% with a sniff. This suggests a low right atrial pressure of 3 mm Hg. Pericardium/ Pleura There is no pericardial effusion. There is no pleural effusion. MMode/2D Measurements & Calculations LVIDd: 5.9 cm LVOT diam: 2.5 cm LVIDs: 5.1 cm Ao root diam: 3.7 cm FS: 14.1 % asc Aorta Diam: 3.3 cm EPSS: 1.3 cm Ao Arch Diam (Prox Trans): 2.8 cm IVSd: 0.92 cm LVPWd: 1.0 cm LV shankar. diameter/BSA (cm/m^2): 2.9 LV sys. diameter/BSA (cm/m^2): 2.5 LA A2 area: 31.1 cm2 RA long axis: 5.5 cm LA A4 area: 22.1 cm2 RA area: 20.7 cm2 LA length (vol): 6.2 cm RA vol: 66.2 ml LA vol: 93.7 ml RA : 32.4 ml/m2 LA vol index: 45.9 ml/m2 IVC diam: 1.3 cm RVD1 (basal): 3.5 cm RVD2 (mid): 2.6 cm TAPSE: 2.1 cm Doppler Measurements & Calculations Ao V2 max: 139.5 cm/sec LVOT Max Ko: 71.0 cm/sec Ao V2 mean: 95.6 cm/sec LV V1 max P.0 mmHg Ao max P.8 mmHg LV V1 VTI: 12.7 cm Ao mean P.2 mmHg MICHELLE(I,D): 2.4 cm2 Ao V2 VTI: 26.2 cm MICHELLE(V,D): 2.5 cm2 sev ratio: 0.49 MICHELLE indexed to BSA (cm^2/m^2): 1.2 MV E max ko: 76.4 cm/sec PA V2 max: 96.9 cm/sec MV A max ko: 3.0 cm/sec PA V2 mean: 65.5 cm/sec MV E/A: 25.5 PA mean P.9 mmHg Med Peak E' Ko: 4.8 cm/sec PA pr(Accel): 32.8 mmHg E/E' med: 16.0 Lat Peak E' Ko: 5.3 cm/sec E/E' lat: 14.4 E/e' average: 15.2 MV dec time: 0.17 sec MR ERO: 0.14 cm2 MR PISA: 1.8 cm2 SV(LVOT): 61.8 ml MR flow rate: 67.6 cm3/sec MR PISA radius: 0.54 cm Reading Physician:[id number] PM
== END ==
PROVIDERS: PCP Internal Medicine; Referring Provider Internal Medicine; Visit Provider Internal Medicine
DX: I50.20 Unspecified systolic (congestive) heart failure (principal)
CPT/HCPCS: 93306